=== PATIENT | female | born 1965 | race Caucasian/White ===

== ENCOUNTER 2017-01-02 11:38 | Emergency (ER) | payer BC ==
[~2017-01-02] VITALS: Ht 172.7 cm; Wt 92.1 kg
[2017-01-02] MEDS ORDERED: AZITHROMYCIN250 MG PO (11:55)
[2017-01-02] MEDS ORDERED: WELLBUTRIN 150150 MG PO (11:56)
[2017-01-02] MEDS ORDERED: MEDROL 4MG TABLE4 MG PO (11:56)
[2017-01-02] MEDS ORDERED: PROZAC 20MG CAP20 MG PO (11:56)
[2017-01-02] MEDS ORDERED: XANAX 0.25MG0.25 MG PO (11:57)
[2017-01-02] MEDS ORDERED: MUCINEX FAST-MA1 TAB PO (11:58)
--- NOTE | 2017-01-02 12:30 | [facility]gent Treatment Center Report ---
History of Present Issue Date/Time Seen by Provider 01/02/17 1200 Visit Reason Pt arrived:Walked Presenting Problem:PT SEEN AT CLINIC YESTERDAY AND DX WITH SINUS INFECTION AND STARTED ON ANTIBIOTIC AND STEROIDS. PATIENT NO BETTER. Location if Accident: Onset of symptoms date/time:/ or onset unknown for:MEDICAL HX UNKNOWN Have you (or family members/close friends) recently traveled outside the [place]? N If Yes, where/when: Have you had exposure to infectious disease within the past month? TB? Other? Specify: c/o "I want a rocephin shot". Pt was seen at [facility] walk in clinic yesterday for sinus tenderness, PND, ear pressure and body aches that started Friday night while at work. Reports negative for strep and flu yesterday. Dx sinusitis and prescribed zpack and medrol dose pack. "She said she would give me a rocephin shot but that they were out". Has started zpack and medrol but no noticeable improvement today. "When I get like this is always goes into bronchitis, then I end up with a chronic cough that causes incontinence and I have to miss too much work. A rocephin shot always prevents this.". Denies cough now. No pain currently "just sinus pressure". Allergy to PCN. Has taken rocephin multiple times in the past with no reaction/ side effects. Source patient Exam Limitations no limitations ALLERGIES Coded Allergies: Penicillins (Intermediate, 01/02/17) erythromycin base (Intermediate, 01/02/17) Home Medications Reported Medications Azithromycin (Azithromycin 250MG TAB) 250 MG PO DAILY Fluoxetine Hcl (Prozac 20MG Capsule(Generic)) 20 MG PO NIGHTLY Bupropion Hcl Sr (Wellbutrin SR 150MG) 150 MG PO BID Methylprednisolone (Medrol) 4 MG PO DAILY Alprazolam (Xanax 0.25MG) 0.25 MG PO ONCE GUAIFEN/PHENYLEPH/ACETAMINOPHN (Mucinex Fast-Max Cold-Sinus Tb) 1 TAB PO DAILY History Medical History General CAD? No Angina: No [place]: No Hypertension? No Hyperlipidemia? No CHF? No DVT? No PE? No COPD? No Asthma? No Anemia? No GERD? No Gastric ulcers? No GI Bleed? No Hernia? No Thyroid Problems? No Hypothyroidism? No CVA? No Seizures? No Diabetes? No Renal Insuffiency? No UTI? No Stones? No BPH? No GB Disease: No Nephritic Syndrome? No Asplenia? No Hepatitis? No Sickle Cell Disease? No Arthritis? Yes Migraines? No Cataracts? No Glaucoma? No MRSA? No HIV? No TB? No Anxiety? Yes Depression? Yes Immunization HX DT/Tetanus 1-4 Years Ago Surgical Hx Previous Surgery?Y Gallbladder (Other) Dental Surgery [employer] Hx LMP 1 Week Ago Social History Smoking Hx Smoker: Current Every Day Smoker Tobacco: Yes Type Cigarettes Alcohol Alcohol: No Review of Systems All Other Systems Reviewed and Negative Constitutional denies chills, denies fever, malaise Eyes denies no symptoms reported ENT ear pain (pressure/fullness), nose congestion. denies: ear discharge, nose discharge, throat pain. Respiratory see HPI, denies shortness of breath Cardiovascular denies no symptoms reported Gastrointestinal denies no symptoms reported Skin denies rash Psychiatric/Neurological headache (sinus pressure) Physical Exam Vital Signs Vital Signs Date Time Temp Pulse Resp B/P Pulse O2 O2 Flow FiO2 Ox Delivery Rate 01/02 1151 98.0 95 20 142/79 100 General Appearance normal appearance Ear, Nose, Throat sinus pain/drainage (moderate frontal/maxillary), thick PND, no tonsillar enlargement or erythema, normal nares and turbinate, patent, no drainage, bilateral EACs normal, left TM normal; intact, pearly cook, + light reflex, , right TM dull, cook, + light reflex Neck non-tender, supple Respiratory Status No: respiratory distress (no cough). Lung Sounds anterior: normal breath sounds. posterior: normal breath sounds. bilateral: normal breath sounds. Cardiovascular regular rate/rhythm, no murmur Neurologic alert Skin intact, warm/dry Lymphatic nontender mild lymphadenopathy bilateral anterior cervical, soft, mobile, <1cm Medical Decision Making LABS/Meds/Orders Pt receiving controlled substance in ED? No Results/Orders Current Medication Orders Sig/Antoni Start time Last Medication Dose Route Stop Time Status Admin Lidocaine HCl 0 .STK-MED ONE 01/02 1218 DC IJ Ceftriaxone Sodium 500 MG ONCE ONE 01/02 1215 DCr 01/02 IM 01/026 1223 Lidocaine HCl 1.8 ML ONCE ONE 01/02 1215 DC 01/02 IM 02/09 1216 1224 Ceftriaxone Sodium 0 .STK-MED ONE 01/02 1208 DCr .ROUTE Progress [facility] Progress Notes Date 01/02/17 Time 1208 Comment Discussed exam and symptoms w/ pt. I agree she might have sinusitis but d/t a virus and not bacterial. I do not feel pt's symptoms or exam warrants antibiotics, azithromycin or rocephin. Pt does not agree and adament about rocephin injection. I do not know her history and she does. 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 Reinforced antibiotic resistance and reviewed risk of injection and risk of the medication. "I am aware". Pt still adament she needs the injection. Aware that this is against what I feel like she needs or what will make her better but if that is what she wants and she is willing to accept the risks, we will give it. Pt accepts the risks and still wants the injection. Departure Departure Time of Disposition 1235 Disposition DC Home or Self Care(routine) Clinical Impression Primary Impression: Sinusitis Qualifiers: Sinusitis location: other Chronicity: acute Recurrence: non- recurrent Qualified Code: J01.80 - Other acute sinusitis Condition STABLE Patient Instructions Ceftriaxone Injection, DI for Sinusitis Additional Instructions Provided w/ viral vs. bacterial handout. Viruses typically last 7-10 days and are the worse the first 2-4 days. Reinforced again that this is likely viral and the rocephin nor azithromycin are likely to help. Continue medrol dose pack, sleep elevated, gargle salt water, flonase and/or decongestants. FU primary care for any new, worsening or persistant symptoms. Discharge Counseling Counseled pt/family regarding diagnosis, medications/RX, home care, follow up needs at [id number]
[2017-01-02 12:35] VITALS: BP 142/79
== END 2017-01-02 12:37 | disposition home or self-care (01) ==
LOC: UTC 11:38
DX: J01.80 Other acute sinusitis (principal); Z72.0 Tobacco use